=== PATIENT | male | born 1960 | race African-American/Black ===

== ENCOUNTER → 2018-06-29 | Outpatient (CLI) | payer OTHER ==
[2018-06-29 16:18] LABS: ABSOLUTE LYMPHOCYTES (AUTO) 2.1 10^3/uL (0.5-4.7); ABSOLUTE MONOCYTES (AUTO) 0.4 10^3/uL (0.1-1.4); ABSOLUTE NEUT (AUTO) 1.9 10^3/uL (1.7-8.2); BASOPHILS % (AUTO) 0.4 % (0-2); EOSINOPHILS % (AUTO) 1.1 % (0-6); HEMOGLOBIN 15.5 g/dL (13.5-17.0); MEAN CORPUSCULAR HEMOGLOBIN 30.8 pg (27.0-33.4); MEAN CORPUSCULAR HGB CONC 34.5 g/dL (32.0-36.0); MEAN CORPUSCULAR VOLUME 89 fl (80-97); MONOCYTES % (AUTO) 8.3 % (3-13); PLATELET COUNT 213 10^3/uL (150-450); RED BLOOD COUNT 5.05 10^6/uL (4.35-5.55); SEGMENTED NEUTROPHILS % (AUTO) 43.2 % (42-78); TOTAL CELLS COUNTED % (AUTO) 100 %; WHITE BLOOD COUNT 4.4 10^3/uL (4.0-10.5)
[2018-06-29 16:41] LABS: ALANINE AMINOTRANSFERASE 33 U/L (21-72); ALBUMIN 4.5 g/dL (3.5-5.0); ALKALINE PHOSPHATASE 54 U/L (38-126); ANION GAP 8 (5-19); ASPARTATE AMINO TRANSFERASE 24 U/L (17-59); BILIRUBIN,DIRECT 0.2 mg/dL (0.0-0.4); BILIRUBIN,TOTAL 0.7 mg/dL (0.2-1.3); BLOOD UREA NITROGEN 11 mg/dL (7-20); CALCIUM 9.5 mg/dL (8.4-10.2); CARBON DIOXIDE 31 mmol/L (22-30); CHLORIDE 103 mmol/L (98-107); GLUCOSE 92 mg/dL (75-110); POTASSIUM 4.2 mmol/L (3.6-5.0); SODIUM 141.9 mmol/L (137-145); TOTAL PROTEIN 7.2 g/dL (6.3-8.2)
== END ==
LOC: OD 14:54
PROVIDERS: ATTEND Orthopaedic Surgery
DX: I10 Essential (primary) hypertension (principal); Z11.2 Encounter for screening for other bacterial diseases
CPT/HCPCS: 36415; 80053; 85025; 87070

== ENCOUNTER 2019-12-17 05:32 | Day surgery (SDC) | payer OTHER ==
[2019-12-13 09:35] LABS: APPEARANCE,URINE CLEAR; BILIRUBIN,URINE NEGATIVE (NEGATIVE); COLOR,URINE STRAW; GLUCOSE, URINE NEGATIVE (NEGATIVE); KETONES,URINE NEGATIVE (NEGATIVE); LEUKOCYTE ESTERASE,URINE NEGATIVE (NEGATIVE); NITRITE,URINE NEGATIVE (NEGATIVE); PROTEIN,URINE NEGATIVE (NEGATIVE); URINE SPECIFIC GRAVITY 1.005; UROBILINOGEN,URINE NEGATIVE mg/dL (<2.0)
[2019-12-13 09:35] LABS: HEMATOCRIT 41.6 % (37.9-51.0); HEMOGLOBIN 14.3 g/dL (13.5-17.0); MEAN CORPUSCULAR HEMOGLOBIN 31.5 pg (27.0-33.4); MEAN CORPUSCULAR HGB CONC 34.3 g/dL (32.0-36.0); MEAN CORPUSCULAR VOLUME 92 fl (80-97); PLATELET COUNT 185 10^3/uL (150-450); RED BLOOD COUNT 4.53 10^6/uL (4.35-5.55); RED CELL DISTRIBUTION WIDTH 13.3 % (11.5-14.0); WHITE BLOOD COUNT 2.5 10^3/uL (4.0-10.5)
[2019-12-13 09:40] LABS: INTERNATIONAL RATION (INR) 0.92; PROTHROMBIN TIME 12.3 SEC (11.4-15.4)
[2019-12-13 09:41] LABS: PARTIAL THROMBOPLASTIN TIME 31.4 SEC (23.5-35.8)
[2019-12-13 09:58] LABS: ANION GAP 5 (5-19); BLOOD UREA NITROGEN 10 mg/dL (7-20); CALCIUM 9.5 mg/dL (8.4-10.2); CARBON DIOXIDE 31 mmol/L (22-30); CHLORIDE 101 mmol/L (98-107); GLUCOSE 89 mg/dL (75-110); POTASSIUM 4.2 mmol/L (3.6-5.0)
[~2019-12-17 05:32] MED LIST: CEFAZOLIN 2 GM/D5W RTU 2 GM/50 ML RTUPB IV PRN; HEPARIN SOD (PORCINE) 5,000 UNIT/ML 1 ML VIAL SUBCUT PRN; LACTATED RINGERS 1000 ML IV PRN; LIDOCAINE 0.5% INJ-PF (5 MG/ML) 50 ML SDV SUBCUT PRN
[2019-12-17] MEDS ORDERED: HEPARIN SOD (PORCINE) 5,000 UNIT/ML 1 ML VIAL ONE (05:51)
[2019-12-17] MEDS ORDERED: CEFAZOLIN 2 GM/D5W RTU 2 GM/50 ML RTUPB IV ONE (05:51)
[2019-12-17] MEDS ORDERED: HYDROMORPHONE HCL INJ/PF 2 MG/ML AMPULE ONE (06:56)
[2019-12-17] MEDS ORDERED: ONDANSETRON HCL INJ/PF 4 MG/2 ML SDV ONE (06:56)
[2019-12-17] MEDS ORDERED: MIDAZOLAM 2 MG/2 ML INJ ONE (06:56)
[2019-12-17] MEDS ORDERED: DEXAMETHASONE SOD PHOSPHATE INJ 4 MG/1 ML VIAL ONE (06:56)
[2019-12-17] MEDS ORDERED: FENTANYL CITRATE INJ/PF 250 MCG/5 ML AMPULE ONE (06:56)
[2019-12-17] MEDS ORDERED: PROPOFOL INJ 200 MG/20 ML VIAL IV ONE (06:57)
[2019-12-17] MEDS ORDERED: BUPIVACAINE HCL 0.25 % INJ/PF (2.5 MG/1 ML) 30 ML VIAL ONE (07:14)
[2019-12-17] MEDS ORDERED: DIPHENHYDRAMINE HCL 50 MG/ML VIAL IV PRN (09:44)
[2019-12-17] MEDS ORDERED: FENTANYL CITRATE INJ/PF 100 MCG/2 ML AMPUL IV PRN ×4 (09:44→13:11)
[2019-12-17] MEDS ORDERED: ONDANSETRON HCL INJ/PF 4 MG/2 ML SDV IV PRN ×2 (09:44→12:37)
[2019-12-17] MEDS ORDERED: MEPERIDINE HCL/PF INJ 25 MG/1 ML DISP.SYRIN IV PRN (09:44)
[2019-12-17] MEDS ORDERED: PROMETHAZINE HCL INJ 25 MG/1 ML VIAL IV PRN ×2 (09:44)
[2019-12-17] MEDS ORDERED: OXYCODONE-ACETAMINOPHEN 5-325 MG TABLET PO PRN ×4 (09:44→12:57)
[2019-12-17] MEDS ORDERED: MORPHINE SULFATE 10 MG/ML INJ IV PRN ×2 (09:44→13:12)
[2019-12-17] MEDS ORDERED: RINGERS SOLUTION,LACTATED 2,000 ML IV PRN (12:37)
[2019-12-17] MEDS ORDERED: FENTANYL CITRATE INJ/PF 100 MCG/2 ML AMPUL ONE (13:12)
[2019-12-17] MEDS ORDERED: GLYCOPYRROLATE 1 MG/5 ML VIAL ONE (14:09)
[2019-12-17] MEDS ORDERED: SUCCINYLCHOLINE CHLORIDE INJ 200 MG/10 ML VIAL ONE (14:09)
[2019-12-17] MEDS ORDERED: NEOSTIGMINE METHYLSULFATE 10 MG/10 ML VIAL ONE (14:09)
[2019-12-17] MEDS ORDERED: VECURONIUM BROMIDE INJ 10 MG VIAL IV ONE (14:09)
[2019-12-17] MEDS: OXYCODONE-ACETAMINOPHEN 5-325 MG TABLET PO PRN ×2 (15:13→16:10)
[2019-12-17] MEDS: HEPARIN SOD (PORCINE) 5,000 UNIT/ML 1 ML VIAL SUBCUT SCH ×2 (15:16→22:48)
[2019-12-17] MEDS ORDERED: OXYBUTYNIN CHLORIDE 5 MG TABLET PO PRN (15:49)
--- NOTE | 2019-12-17 15:49 | PDOC PROGRESS REPORT ---
Subjective Progress Note for:: 12/17/19 Subjective:: No acute changes/events. Some pain over incisions, some discomfort from lyons, no N/V, tolerating sips, no flatus. Reason For Visit: C61 MALIGNANT NEOPLASM OF PROSTATE Physical Exam Vital Signs: Temp Pulse Resp BP Pulse Ox 98.9 F 95 20 135/95 H 96 12/17/19 14:46 12/17/19 14:46 12/17/19 14:46 12/17/19 14:46 12/17/19 14:46 Intake & Output 12/16/19 12/17/19 12/18/19 06:59 06:59 06:59 Intake Total 1250 Output Total 1250 Balance 0 Weight 87 kg General appearance: PRESENT: no acute distress Head exam: PRESENT: atraumatic Eye exam: PRESENT: conjunctiva pink Mouth exam: PRESENT: moist GI/Abdominal exam: PRESENT: tenderness - abd soft, aTTP over incisions, incisions well approximated without e/i/d, no r/g/peritoneal signs Gentrourinary exam: PRESENT: indwelling catheter - catheter clear, liane, secured Extremities exam: PRESENT: other - no c/c/e Neurological exam: PRESENT: alert Results Laboratory Results: 12/13/19 08:29 12/17/19 06:07 12/17/19 12/17/19 06:07 06:07 Potassium 4.0 Blood Type A POSITIVE Antibody Screen NEGATIVE Assessment & Plan - Diagnosis (1) Prostate cancer Is this a current diagnosis for this admission?: No - Time Time Spent: 30 to 50 Minutes - Plan Summary Plan Summary: 59 y/o male with prostate cancer s/p RALP/BPLND 12/17/19. Doing well. - Pain meds as written, IV dilaudid PRN breakthrough pain - ICS, pulm toilet, early ambulation - Clears, ADAT to regular - Critical lyons, DO NOT REMOVE. Plan to remove in the office on POD#9. - Ditropan PRN bladder spasms - SQH, SCD's - DCP: remain inpatient tonight for recovery from surgery. Plan for d/c home POD#1 if continues to do well.
[2019-12-17] MEDS: HYDROMORPHONE HCL INJ/PF 2 MG/ML AMPULE IV PRN ×3 (17:26→23:30)
[2019-12-17] MEDS: DOCUSATE SODIUM 100 MG CAPSULE PO SCH (17:27)
--- NOTE | 2019-12-17 23:12 | Operative Report ---
Operative Report DATE OF SURGERY: 12/17/19 Operative Report: Pre-operative Diagnosis: C61 Malignant Neoplasm of the Prostate Post-operative Diagnosis: Same as above Procedure: 1. Robotic-assisted laparoscopic radical prostatectomy 2. Bilateral pelvic lymphadenectomy 3. Incisional blocks for post-operative pain relief Primary Surgeon: Mario Avendano M.D. Secondary Surgeon: John Arzola M.D. Operative Findings: No evidence of obvious cancer extension, lymphadenopathy or metastatic disease Specimens: 1. Donna-prostatic fat and lymph nodes 2. Right pelvic lymph nodes 3. Left pelvic lymph nodes 4. Prostate, seminal vesicles, and ampullary vas deferens EBL: 150 mL Anesthesia: GETA, incisional blocks for post-operative pain relief Drains/tubes: 18 Fr 2-way lyons catheter Complications: None Condition on Transfer: Stable Indications for procedure: This is a 59 year-old male who has cancer of the prostate with 10 of 16 cores positive with the Brooks score of 3+4=7. After discussion of the risks, benefits and alternatives to the procedure including but not limited to urinary incontinence, impotence, bleeding, infection, injury to adjacent structures or organs systems, pain, recurrence, need for adjuvant treatment, rectal injury, ileus, small bowel obstruction, CO, CVA, DVT, PE and the patient elected to proceed with the above procedure. Description of Procedure: After satisfactory induction of general endotracheal anesthesia, the patient was placed in the dorsal lithotomy position and prepped and draped in the normal sterile fashion for prostatectomy. A pre-operative timeout was performedthe correct patient, site and procedure were identified. Pre-operative antibiotics with Ancef 2 grams were given within 30 minutes of the start time of the case, 5000 Units of subcutaneous heparin were administered in pre-operative holding, SCDs were on and functioning throughout the case. All pressure points were padd ed, all fire hazards were identified. First, a Verses needle was passed into the abdomen in the midline 2 cm superior to the umbilicus and the drop test was positive for intra-abdominal placement wi thout injury to bowel, blood vessels and organs. The abdomen was then insufflated to 15 mm Hg pressure with an opening pressure of less than 6 mm Hg. The robotic were then placed. The camera port was placed just above the umbilicus, 17 cm superior to the pubic symphysis. Two 8 mm ports were placed 8 cm from the midline at the upper portion of the umbilicus. A fourth 8 mm port was then placed additional 8 cm lateral to the left-hand port. A 12 mm switchboard operator assistant port was then placed in the right lower abdomen 8 cm below the right-hand port. A 5 mm port was then placed just cephalad and medial to the switchboard operator assistant port for irrigation and suction. The [place] robot was then docked to the patient and the table then maneuvered into the steep Trendelenburg position of 28 degrees. The 0-degree camera lens was placed in the third arm. Monopolar scissors were placed in the right hand with a fenestrated bipolar in the left hand, and a Pro- Grasp forceps in the 4th arm. We then proceeded with radical prostatectomy. Attention was turned to the left side and because of some adhesions of the colon to the left pelvic sidewall these adhesions were taken down sharply. An incision was then made in the peritoneum through and lateral to the right median umbilical ligament and extended down to just lateral to the right inguinal ring. A small right inguinal hernia was noted at this time and this was avoided throughout the rest of the dissection. A similar incision was then made lateral to the left medial umbilical ligament and carried down to the symphysis. Then attention was turned to dropping the bladder and the medial umbilical ligaments, which were transected below the umbilicus. Then, the retro-pubic space was entered sharply with cautery. The fat overlying the prostate was removed and passed off for specimen. Next, the endopelvic fascia was opened on both sides of the prostate sharply and carried down to the apex of the prostate. A 2-0 V-Loc sutures was then used as a DVC obstructing stitch and anchored to the posterior pubic symphysis. Attention was then turned to the bladder neck where the bladder neck was incised beginning in the midline and carried laterally to drop the bladder from the base of prostate. The urethra was then identified and transected in the midline and the catheter was pulled out to be used for traction. The prostate and the bladder n david posteriorly were incised and the seminal vesicles were identified on both sides along with the ampullae of the vas deferens. The ampullae of the vas deferens were individually cauterized, transected and used for traction. The seminal vesicles were then dissected free sharply and lifted superiorly exposing the pre-rectal fat plane. This plane was developed to identify the pedicles on both sides of the prostate which were taken down with Hem-o-lock clips and sharp dissection. The Veil of Aphrodite was identified bilaterally and sharply dissected away from the prostate and displaced laterally so as to avoid injury to the donna-prostatic nerves. Next, the dissection was carried all the way to the apex of the prostate on both sides. The dorsal venous complex was then transected and the urethra identified. The apex of the prostate was identified and the urethra was transected distal to the apex of the prostate. The rectourethralis musculature was then incised and the prostate was freed. The prostate was then placed in a specimen bag and moved to the side of the field. No significant bleeding was appreciated this time. Next, a 2-0 V-loc Ravindra stitch was placed in the Denonvilliers fascia and used to re-approximate the bladder neck to the urethral stump. The anastomosis of the bladder neck and urethra was accomplished with 2-0 V-loc suture in the double- armed fashion of Marcello Aquino. The anastomosis began by placing the sutures in the midline of the bladder posteriorly and then these were passed through the respective positions in the urethra starting posteriorly and then progressing anteriorly until a circumferential closure was achieved. Once the sutures were cinched down and tied an 18 [place] lyons catheter was placed without difficulty and the balloon was inflated with 10 mL of sterile water. This was then placed to a gravity bag and noted to be draining well. Next, a leak test was performed with 200-300 mL of normal saline and this demonstrated no evidence of an anastomotic leak. The donna-prostatic gutters were then suctioned ensure there was no active bleeding. The suture on the specimen bag was then passed out through the camera port. Next, the lymph node dissection was begun by incising the peritoneum lateral to the medial umbilical ligament on the right side and carried down to the symphysis. The node bearing tissue overlying the external iliac artery and vein as well as the obturator fossa was dissected free and the lymphatic channels were sealed with bipolar cautery and 5 mm metal clips. The obturator nerve was visualized bilaterally and kept away from the dissection. Bleeding points were fulgurated as they occurred. The left external iliac artery was identified and the node bearing tissue overlying the artery and vein as well as the obturator fossa was removed. These nodes were then passed off the field. The abdomen was re-inspected and it was noted that there was no evidence of active bleeding nor organ injury. The robot was undocked and the ports were removed under direct vision. The patient was then placed in the supine position. The midline port site was then incised to allow removal of the specimen bag. The rectus fascia was closed with 0-Vicryl running sutures. The incisions were then sealed with skin glue and running 4-0 monocryl subcuticular sutures. This concluded the procedure and the patient was cleaned off, awoken from anesthesia and returned to PACU in stable condition having tolerated the entirety of the case without complication. Sponge, needle and instrument counts were correct x2. PREOPERATIVE DIAGNOSIS: Prostate cancer POSTOPERATIVE DIAGNOSIS: Same as above OPERATION: Robotic Assisted radical prostatectomy with bilateral pelvic lymph node dissection SURGEON: MARIO AVENDANO TISSUE REMOVED OR ALTERED: see dictation COMPLICATIONS: None, see dictation ESTIMATED BLOOD LOSS: 150 mL INTRAOPERATIVE FINDINGS: see dictation PROCEDURE: see dictation
[2019-12-18] MEDS: HYDROMORPHONE HCL INJ/PF 2 MG/ML AMPULE IV PRN ×2 (05:18→10:43)
[2019-12-18] MEDS: HEPARIN SOD (PORCINE) 5,000 UNIT/ML 1 ML VIAL SUBCUT SCH (05:33)
[2019-12-18] MEDS: DOCUSATE SODIUM 100 MG CAPSULE PO SCH (10:06)
--- NOTE | 2019-12-18 10:23 | PDOC PROGRESS REPORT ---
Subjective Progress Note for:: 12/18/19 Subjective:: No acute changes/events. Pain controlled, no N/V, tolerated a regular diet without N/V, ambulated x5 w/o difficulty, some eructation, no flatus/BM yet. No CP/SOB nor other c/o. Reason For Visit: C61 MALIGNANT NEOPLASM OF PROSTATE Physical Exam Vital Signs: Temp Pulse Resp BP Pulse Ox 98.7 F 76 17 138/80 H 98 12/18/19 08:00 12/18/19 08:00 12/18/19 08:00 12/18/19 08:00 12/18/19 08:00 Intake & Output 12/17/19 12/18/19 12/19/19 06:59 06:59 06:59 Intake Total 2430 Output Total 3250 Balance -820 Weight 87 kg 87 kg General appearance: PRESENT: no acute distress Head exam: PRESENT: atraumatic Eye exam: PRESENT: conjunctiva pink Mouth exam: PRESENT: moist Respiratory exam: PRESENT: clear to auscultation kat. ABSENT: rales, rhonchi, wheezes Cardiovascular exam: PRESENT: other - PPP Pulses: PRESENT: +2 pedal pulses bilateral Vascular exam: PRESENT: normal capillary refill GI/Abdominal exam: PRESENT: other - Soft, aTTP incisions, mildly distended from baseline, incisions well approximated without e/i/d, no r/g/peritoneal signs. Gentrourinary exam: PRESENT: indwelling catheter - urine clear, yellow, secured, no penoscrotal edema Extremities exam: PRESENT: other - no c/c/e, no calf TTP b/l Musculoskeletal exam: PRESENT: ambulatory, full ROM Neurological exam: PRESENT: alert Psychiatric exam: PRESENT: appropriate affect Results Laboratory Results: 12/13/19 08:29 12/17/19 06:07 Assessment & Plan - Diagnosis (1) Prostate cancer Is this a current diagnosis for this admission?: Yes - Time Time Spent: 50 to 70 Minutes Critical Time spent with patient: Less than 15 minutes Medications reviewed and adjusted accordingly: Yes Anticipated discharge: Home Within: within 24 hours - Inpatient Certification I certify that my determination is in accordance with my understanding of Medicare's requirements for reasonable and necessary INPATIENT services [42 CFR 412.3e].: Yes - Plan Summary Plan Summary: 59 y/o male with prostate cancer s/p RALP/BPLND 12/17/19. Doing well. - Pain meds as written, IV dilaudid PRN breakthrough pain - ICS, pulm toilet, early ambulation - Regular diet as tolerated - Critical lyons, DO NOT REMOVE. Plan to remove in the office on POD#9. - Ditropan PRN bladder spasms - SQH, SCD's - DCP: d/c home today after lunch if pain controlled, ambulating, tolerating a regular diet, vitals normal and no other concerns
[2019-12-18] MEDS: OXYCODONE-ACETAMINOPHEN 5-325 MG TABLET PO PRN (13:14)
[2019-12-18 13:53] VITALS: BP 138/80
== END 2019-12-18 15:37 | disposition home or self-care (01) ==
LOC: OROUT 05:32 → 4W 15:27 → OROUT 12-18 15:37
PROVIDERS: ATTEND Urology
DX: C61 Malignant neoplasm of prostate (principal); I10 Essential (primary) hypertension; Z79.899 Other long term (current) drug therapy; Z03.818 Encounter for observation for suspected exposure to other biological agents ruled out
CPT/HCPCS: 55866; S2900; 36415; 80048; 81001; 84132; 85027; 85610; 85730; 865; 86850; 86900; 86901; 87086; 87635; 88305; 88309; 94799; C9803; J0330; J0690; J1100; J1170; J1644; J2250; J2405; J2704; J2710; J3010; J3490; J7120